=== PATIENT | female | born 1995 | race Caucasian/White ===

== ENCOUNTER 2020-05-29 11:57 | Emergency (ER) | payer SELFPAY ==
[~2020-05-29] VITALS: Ht 167.6 cm; Wt 520.7 kg
[2020-05-29 12:02] VITALS: BP 128/89; Ht 167.6 cm; Wt 520.7 kg
== END 2020-05-29 14:26 | disposition home or self-care (01) ==
LOC: ED 11:57
DX: U07.1 COVID-19 (principal)
CPT/HCPCS: U0003